=== PATIENT | female | born 1995 | race Caucasian/White ===

== ENCOUNTER 2021-09-18 15:57 | Emergency (ER) | payer MEDICAID ==
[~2021-09-18] VITALS: Ht 157.5 cm; Wt 55.0 kg
[2021-09-18 16:15] VITALS: BP 108/73
[2021-09-18 21:35] LABS: BASOPHILS % 0.3 % (0.0-2.0); HEMOGLOBIN. 14.2 g/dL (12.0-16.0); LYMPHOCYTES % 35.3 % (20.0-50.0); MEAN PLATELET VOLUME 9.3 fl (7.4-10.4); MONOCYTES % 6.4 % (2.0-8.0); PLATELET 231 x1000/uL (130-400); RED BLOOD CELL COUNT 4.88 mill/uL (4.2-5.4); RED CELL DISTRIBUTION WIDTH 13.1 % (11.6-14.6)
[2021-09-18 21:41] LABS: CHLORIDE 105 mEq/L (98-107)
[2021-09-18 21:51] LABS: B-HCG QUANTITATIVE < 1 mIU/mL (<3)
== END 2021-09-18 18:58 | disposition left against medical advice (07) ==
LOC: ER 15:57
DX: Z53.21 Procedure and treatment not carried out due to patient leaving prior to being seen by health care provider (principal); R10.9 Unspecified abdominal pain; R11.0 Nausea; Z87.440 Personal history of urinary (tract) infections
CPT/HCPCS: 36415; 80053; 84702; 85025

== ENCOUNTER 2021-11-30 19:03 | Emergency (ER) | payer MEDICAID ==
[~2021-11-30] VITALS: Ht 157.5 cm; Wt 54.0 kg
[2021-11-30 20:03] VITALS: BP 118/85
[2021-11-30] MEDS ORDERED: HYDROCODONE/ACETAMINOPHEN 5/325MG TABLET PO ONE (21:30)
[2021-11-30] MEDS ORDERED: ONDANSETRON 4MG ODT PO ONE (21:30)
[2021-11-30] MEDS ORDERED: HYDROCODONE/ACETAMINOPHEN 5/325MG TABLET PO NR (23:45)
[2021-11-30] MEDS ORDERED: ONDANSETRON 4MG ODT PO NR (23:45)
[2021-12-01] MEDS ORDERED: HYDROCODONE/ACETAMINOPHEN 5/325MG TABLET PO NR (00:30)
[2021-12-01] MEDS ORDERED: ONDANSETRON 4MG ODT PO NR (00:30)
== END 2021-11-30 22:54 | disposition home or self-care (01) ==
LOC: ER 19:03
DX: S06.0X9A Concussion with loss of consciousness of unspecified duration, initial encounter (principal); Z98.890 Other specified postprocedural states; W22.03XA Walked into furniture, initial encounter; Y93.89 Activity, other specified; Y92.89 Other specified places as the place of occurrence of the external cause; Y99.8 Other external cause status
CPT/HCPCS: 70450; 81025; 99284; Q0162

== ENCOUNTER 2024-12-04 16:23 | Emergency (ER) | payer MEDICAID, OTHER ==
[~2024-12-04] VITALS: Ht 157.5 cm; Wt 62.0 kg
[2024-12-04 16:46] VITALS: RESP 18; TEMP 36.8; O2SAT 99
[2024-12-04] MEDS ORDERED: IBUP-2028 MT (17:50)
[2024-12-04] MEDS ORDERED: GABA-529 MT (17:50)
[2024-12-04] MEDS ORDERED: LIDO-53 TP (17:50)
[2024-12-04] MEDS: KETOROLAC 30MG/ML VIAL IM ONE (18:45)
[2024-12-04] MEDS: LIDOCAINE 5% PATCH TOP SCH (18:45)
[2024-12-04 18:51] VITALS: BP 118/82; PULSE 94; O2SAT 100
== END 2024-12-04 18:53 | disposition home or self-care (01) ==
LOC: ER 16:23
DX: M25.512 Pain in left shoulder (principal); M79.602 Pain in left arm
CPT/HCPCS: 99284; 81025; 73030; 73080; 73110; 96372; J1885; 99283